=== PATIENT | female | born 1985 | race African-American/Black ===

== ENCOUNTER 2021-10-26 05:33 | Emergency (ER) | payer BC, SELFPAY ==
[2021-10-26] MEDS ORDERED: Lidocaine 1% w/Epinephrine 1:100K 20 ML VIAL ONE (05:57)
== END 2021-10-26 06:39 | disposition home or self-care (01) ==
LOC: CSHERS 05:33
DX: L02.212 Cutaneous abscess of back [any part, except buttock and flank] (principal); E11.9 Type 2 diabetes mellitus without complications; I10 Essential (primary) hypertension; Z79.84 Long term (current) use of oral hypoglycemic drugs; Z79.899 Other long term (current) drug therapy
CPT/HCPCS: 10060

== ENCOUNTER 2022-06-26 17:33 | Emergency (ER) | payer BC ==
[2022-06-26 18:22] LABS: Bilirubin Neg (Negative); Blood, Urine 250 (Negative); Glucose, Urine (Dipstick) 250 mg/dL (Negative); Ketone, Urine 5 mg/dL (Negative); Leukocyte 25 (Negative); Nitrite Negative (Negative); Protein, Urine (Dipstick) 30 mg/dl (Neg-Trace)
[2022-06-26 18:25] LABS: Bacteria/HPF 1+ HPF (None Seen); Mucous/LPF Rare LPF (<2+); RBC/HPF Greater than 50 HPF (0-3); WBC/HPF 0-3 HPF (0-3)
[2022-06-26] MEDS ORDERED: Acetaminophen 500 MG TAB ONE (21:17)
== END 2022-06-26 21:15 | disposition home or self-care (01) ==
LOC: CSHERS 17:33
DX: O20.0 Threatened abortion (principal); Z3A.01 Less than 8 weeks gestation of pregnancy
CPT/HCPCS: 36415; 76856; 81003; 81015; 84702

== ENCOUNTER 2023-08-12 12:18 | Outpatient (CLI) | payer BC, OTHER ==
[2023-08-12 14:22] LABS: #Basophils 0.1 10x3/uL (0.0-0.2); #Eosinphils 0.1 10x3/uL (0.0-0.5); #Monocytes 0.7 10x3/uL (0.0-1.1); #Neutrophils 5.5 10x3/uL (1.5-8.4); %Basophils 0.6 % (0.0-2.0); %Eosinophils 0.8 % (0.0-6.0); %Lymphocytes 23.7 % (18.0-47.0); %Monocytes 8.6 % (0.0-10.0); %Neutrophils 65.9 % (40.0-75.0); Hemoglobin 10.9 g/dL (12.0-15.5); Mean Corpuscular HGB CONC 32.1 g/dL (32.0-36.0); Mean Corpuscular Hemoglobin 29.6 pg (27.0-33.0); Mean Corpuscular Volume 92.4 fl (81.6-98.3); Mean Platelet Volume 9.4 fl (7.4-10.4); Platelet Count 375 10x3/uL (150-450); RBC Distribution Width 13.6 % (11.5-14.5); Red Blood Cell (RBC) Count 3.68 10x6/uL (3.90-5.03); White Blood Cell (WBC) Count 8.3 10x3/uL (3.5-10.5)
[2023-08-12 14:43] LABS: Anion Gap 18 mmol/L (10-20); BUN (Urea Nitrogen) 9 mg/dL (7.0-18.7); Calc. Creatinine Clearance 0 mL/min (70-130); Calcium 10.1 mg/dL (7.8-10.44); Carbon Dioxide 21 mmol/L (22-29); Chloride 102 mmol/L (98-107); Estimated GFR 118; Glucose 60 mg/dL (70-105); Potassium 4.3 mmol/L (3.5-5.1); Sodium 137 mmol/L (136-145)
== END 2023-08-12 12:19 | disposition home or self-care (01) ==
LOC: CSHLAB 12:18
PROVIDERS: ATTEND Specialist
DX: Z01.818 Encounter for other preprocedural examination (principal); C50.011 Malignant neoplasm of nipple and areola, right female breast
CPT/HCPCS: 80048; 85025; 93005; 93010

== ENCOUNTER 2023-08-20 05:51 | Day surgery (SDC) | payer BC, OTHER ==
[2023-08-12 13:23] VITALS: BMI 53.6
[2023-08-20] MEDS ORDERED: Bupivacaine 0.25% HCL 30 ML VIAL ONE (06:22)
[2023-08-20] MEDS ORDERED: EPINEPHrine 1 MG/ML VIAL ONE (06:22)
[2023-08-20] MEDS ORDERED: Ketorolac Tromethamine 30 MG/ML VIAL ONE (06:42)
[2023-08-20] MEDS ORDERED: Acetaminophen 500 MG TAB ONE (06:42)
[2023-08-20] MEDS ORDERED: Ondansetron PF 4 MG/2 ML Vial ONE (07:05)
[2023-08-20] MEDS ORDERED: Dexamethasone 4 mg/ml Vial ONE (07:05)
[2023-08-20] MEDS ORDERED: Lidocaine 1% PF 5 ML VIAL ONE (07:05)
[2023-08-20] MEDS ORDERED: Rocuronium Bromide 10 MG/ML (10ML VIAL) ONE (07:05)
[2023-08-20] MEDS ORDERED: fentaNYL 50 mcg/mL 1 mL Vial ONE (07:05)
[2023-08-20] MEDS ORDERED: PROPOFOL 20 ML ONE (07:05)
[2023-08-20] MEDS ORDERED: CEFAZOLIN 2 GM VIAL ONE (07:15)
[2023-08-20] MEDS ORDERED: Esmolol 100 MG/10 ML VIAL ONE (07:56)
[2023-08-20] MEDS ORDERED: PHENYLEPHRINE-NS 100 MCG/ML 10 ML SYRINGE ONE ×2 (07:56→18:03)
[2023-08-20] MEDS ORDERED: Atropine Sulfate 0.4 mg/1 ml Vial ONE (08:07)
[2023-08-20] MEDS ORDERED: Glycopyrrolate 0.2 MG/ML 5 ML SYRINGE ONE (08:21)
[2023-08-20] MEDS ORDERED: SUGAMMADEX SODIUM 200 MG/2 ML VIAL ONE (08:23)
[2023-08-20] MEDS ORDERED: HYDROcodone/Acetaminophen 5/325 mg Tablet PO SCH (11:30)
[2023-08-20] MEDS ORDERED: Betamet Acet/Betamet Na Ph 30 MG/5 ML VIAL IM SCH (12:00)
[2023-08-20 15:53] VITALS: TEMP 98.2
[2023-08-20 15:57] VITALS: BP 143/73
[2023-08-20] MEDS ORDERED: ePHEDrine Sulfate 50 MG/10 ML VIAL ONE (18:04)
== END 2023-08-20 15:15 | disposition home or self-care (01) ==
LOC: CSHSDC 05:51 → CSHANTE 10:43 → CSHSDC 15:15
PROVIDERS: ATTEND Specialist
PROC: 0HBT0ZZ Excision of Right Breast, Open Approach (ICD-10-PCS; principal; 2023-08-20)
DX: C50.011 Malignant neoplasm of nipple and areola, right female breast (principal); I10 Essential (primary) hypertension; E11.9 Type 2 diabetes mellitus without complications; E66.01 Morbid (severe) obesity due to excess calories; Z68.43 Body mass index [BMI] 50.0-59.9, adult; Z79.82 Long term (current) use of aspirin; Z79.84 Long term (current) use of oral hypoglycemic drugs; Z79.899 Other long term (current) drug therapy; Z87.891 Personal history of nicotine dependence
CPT/HCPCS: 36416; 88307; 88341; 88342; J0171; J0461; J0702; J1100; J1885; J2405; J2704; J3010; S0020

== ENCOUNTER 2023-10-15 16:43 | Day surgery (SDC) | payer BC, OTHER ==
[2023-10-15 17:15] VITALS: BMI 54.0
[2023-10-15] MEDS ORDERED: hydrALAZINE 20 MG/ML VIAL SLOW IVP PRN (17:54)
[2023-10-15 19:08] LABS: #Monocytes 0.4 10x3/uL (0.0-1.1); #Neutrophils 4.1 10x3/uL (1.5-8.4); %Basophils 0.3 % (0.0-2.0); %Eosinophils 0.5 % (0.0-6.0); %Lymphocytes 27.2 % (18.0-47.0); %Monocytes 6.9 % (0.0-10.0); %Neutrophils 64.8 % (40.0-75.0); Hematocrit 33.5 % (34.9-44.5); Hemoglobin 11.3 g/dL (12.0-15.5); Mean Corpuscular HGB CONC 33.7 g/dL (32.0-36.0); Mean Corpuscular Volume 88.9 fl (81.6-98.3); Platelet Count 303 10x3/uL (150-450); RBC Distribution Width 13.8 % (11.5-14.5); Red Blood Cell (RBC) Count 3.77 10x6/uL (3.90-5.03); White Blood Cell (WBC) Count 6.4 10x3/uL (3.5-10.5)
[2023-10-15 19:16] LABS: Creatinine, Urine 181.11 mg/dL (47-110)
[2023-10-15 19:22] LABS: ALT (SGPT) 11 U/L (8-55); AST (SGOT) 15 U/L (5-34); Albumin 3.3 g/dL (3.5-5.0); Alkaline Phosphatase 135 U/L (40-110); Anion Gap 15 mmol/L (10-20); BUN (Urea Nitrogen) 11 mg/dL (7.0-18.7); Bilirubin, Total 0.2 mg/dL (0.2-1.2); Calc. Creatinine Clearance 223 mL/min (70-130); Calcium 10.5 mg/dL (7.8-10.44); Carbon Dioxide 20 mmol/L (22-29); Chloride 103 mmol/L (98-107); Estimated GFR 113; Globulin 3.7 g/dL (2.4-3.5); Glucose 147 mg/dL (70-105); Potassium 4.1 mmol/L (3.5-5.1); Sodium 134 mmol/L (136-145)
== END 2023-10-15 19:44 | disposition home or self-care (01) ==
LOC: CSHLD/OP 16:43
PROVIDERS: ATTEND Family Medicine
DX: O10.913 Unspecified pre-existing hypertension complicating pregnancy, third trimester (principal); O09.523 Supervision of elderly multigravida, third trimester; O24.313 Unspecified pre-existing diabetes mellitus in pregnancy, third trimester; O99.213 Obesity complicating pregnancy, third trimester; O99.891 Other specified diseases and conditions complicating pregnancy; O99.013 Anemia complicating pregnancy, third trimester; Z86.000 Personal history of in-situ neoplasm of breast; Z98.890 Other specified postprocedural states; Z79.82 Long term (current) use of aspirin; Z79.4 Long term (current) use of insulin; Z79.899 Other long term (current) drug therapy; Z79.84 Long term (current) use of oral hypoglycemic drugs; Z3A.35 35 weeks gestation of pregnancy
CPT/HCPCS: 36415; 76819; 80053; 82570; 82728; 84156; 85025; 99284

== ENCOUNTER 2023-10-20 05:00 | Inpatient (IN) | payer BC, OTHER ==
[2023-10-20] MEDS ORDERED: ePHEDrine Sulfate 50 MG/10 ML VIAL ONE (08:00)
[2023-10-20 20:46] VITALS: BMI 54.0
[2023-10-20] MEDS ORDERED: Misoprostol 200 MCG TAB PR PRN (22:07)
[2023-10-20] MEDS ORDERED: Carboprost 250 MCG/ML AMP IM PRN (22:07)
[2023-10-20] MEDS ORDERED: Ondansetron PF 4 MG/2 ML Vial IVP PRN (22:07)
[2023-10-20] MEDS ORDERED: hydrALAZINE 20 MG/ML VIAL SLOW IVP PRN (22:07)
[2023-10-20] MEDS ORDERED: Diphenoxylate HCl/Atropine Tablet PO PRN (22:07)
[2023-10-20] MEDS ORDERED: Tranexamic Acid 1,000 MG/10 ML VIAL IVP PRN (22:07)
[2023-10-20] MEDS ORDERED: Promethazine HCl 25 MG/ML VIAL IM PRN (22:07)
[2023-10-20] MEDS ORDERED: Lidocaine 1% (PF) 30 ML VIAL SC PRN (22:07)
[2023-10-20] MEDS ORDERED: Acetaminophen 500 MG TAB PO PRN (22:07)
[2023-10-20] MEDS ORDERED: Docusate 100 MG CAP PO PRN (22:07)
[2023-10-20] MEDS ORDERED: Oxytocin 30 units/NS 500 ML 500 ML IV SCH ×2 (22:15)
[2023-10-20] MEDS ORDERED: HumaLOG 300 UNITS/3 ML VIAL SC PRN ×2 (22:24)
[2023-10-20] MEDS ORDERED: Dextrose 5% in Water 1,000 ML IV PRN (22:24)
[2023-10-20] MEDS ORDERED: Glucagon 1 MG/ML KIT IM PRN (22:24)
[2023-10-20] MEDS ORDERED: Dextrose 50% Abboject 50 ML SYRINGE SLOW IVP PRN (22:24)
[2023-10-20] MEDS ORDERED: HumaLOG 300 UNITS/3 ML VIAL SC SCH ×2 (22:30→23:09)
[2023-10-20 22:38] LABS: Hematocrit 32.4 % (34.9-44.5); Hemoglobin 10.7 g/dL (12.0-15.5); Mean Corpuscular Hemoglobin 28.8 pg (27.0-33.0); Mean Corpuscular Volume 87.3 fl (81.6-98.3); Mean Platelet Volume 10.2 fl (7.4-10.4); Platelet Count 324 10x3/uL (150-450); RBC Distribution Width 14.1 % (11.5-14.5); Red Blood Cell (RBC) Count 3.71 10x6/uL (3.90-5.03); White Blood Cell (WBC) Count 7.2 10x3/uL (3.5-10.5)
[2023-10-20 23:02] LABS: ALT (SGPT) 14 U/L (8-55); AST (SGOT) 41 U/L (5-34); Albumin 3.3 g/dL (3.5-5.0); Alkaline Phosphatase 129 U/L (40-110); Anion Gap 17 mmol/L (10-20); BUN (Urea Nitrogen) 11 mg/dL (7.0-18.7); Bilirubin, Total 0.2 mg/dL (0.2-1.2); Calc. Creatinine Clearance 211 mL/min (70-130); Calcium 10.2 mg/dL (7.8-10.44); Carbon Dioxide 16 mmol/L (22-29); Chloride 104 mmol/L (98-107); Estimated GFR 106; Globulin 4.3 g/dL (2.4-3.5); Glucose 227 mg/dL (70-105); HBSAg Index 0.19 S/CO (0-0.99); Hep B Surf Ag - L&D Non-Reactive S/CO (NonReactive); Potassium 4.9 mmol/L (3.5-5.1); Protein, Total 7.6 g/dL (6.0-8.3); Sodium 132 mmol/L (136-145); Syphilis Antibody Nonreactive (Nonreactive); Syphilis Antibody Index 0.03 S/CO (<1.00 Non-Reactive)
[2023-10-20] MEDS: Misoprostol 100 MCG TAB VAG SCH (23:35)
[2023-10-21 00:07] LABS: Creatinine, Urine 146.74 mg/dL (47-110)
[2023-10-21] MEDS: Misoprostol 100 MCG TAB VAG SCH ×2 (03:15→09:34)
[2023-10-21 04:22] LABS: Anion Gap 14 mmol/L (10-20); BUN (Urea Nitrogen) 9 mg/dL (7.0-18.7); Calc. Creatinine Clearance 244 mL/min (70-130); Calcium 9.5 mg/dL (7.8-10.44); Carbon Dioxide 18 mmol/L (22-29); Chloride 107 mmol/L (98-107); Estimated GFR 116; Glucose 94 mg/dL (70-105); Potassium 3.8 mmol/L (3.5-5.1); Sodium 135 mmol/L (136-145)
[2023-10-21] MEDS: NIFEdipine XL 30 MG ER.TAB PO SCH (07:52)
[2023-10-21] MEDS: metFORMIN 500 MG TAB PO SCH (07:56)
[2023-10-21] MEDS ORDERED: Magnesium Sulfate 20 gm/500 ml 20 GM/500 ML BAG ONE (08:04)
[2023-10-21] MEDS ORDERED: Magnesium Sulfate 6 GM in Sodium Chloride 0.9% 250 ML 250 ML IVPB SCH (08:15)
[2023-10-21] MEDS ORDERED: Magnesium 2 GM/50 ML(in water) 2 GM in Premix 1 BAG IVPB SCH (08:15)
[2023-10-21] MEDS ORDERED: hydrALAZINE 20 MG/ML VIAL SLOW IVP PRN ×2 (08:45)
[2023-10-21] MEDS ORDERED: Lorazepam 2 MG/ML VIAL SLOW IVP PRN (08:45)
[2023-10-21] MEDS ORDERED: Labetalol HCl 100 MG/20 ML VIAL SLOW IVP PRN ×2 (08:45)
[2023-10-21] MEDS ORDERED: Calcium Gluc 4.6 MEQ/10 ML (100 MG/ML) SLOW IVP PRN (08:45)
[2023-10-21] MEDS ORDERED: Lantus 1000 UNITS/10 ML VIAL SC SCH ×2 (09:00)
[2023-10-21 09:59] LABS: #Monocytes 0.6 10x3/uL (0.0-1.1); #Neutrophils 4.1 10x3/uL (1.5-8.4); %Basophils 0.3 % (0.0-2.0); %Eosinophils 0.3 % (0.0-6.0); %Lymphocytes 22.2 % (18.0-47.0); %Monocytes 9.5 % (0.0-10.0); %Neutrophils 67.5 % (40.0-75.0); Hematocrit 34.9 % (34.9-44.5); Hemoglobin 11.4 g/dL (12.0-15.5); Mean Corpuscular HGB CONC 32.7 g/dL (32.0-36.0); Mean Corpuscular Hemoglobin 29.9 pg (27.0-33.0); Mean Corpuscular Volume 91.6 fl (81.6-98.3); Mean Platelet Volume 9.7 fl (7.4-10.4); Platelet Count 314 10x3/uL (150-450); RBC Distribution Width 13.9 % (11.5-14.5); Red Blood Cell (RBC) Count 3.81 10x6/uL (3.90-5.03); White Blood Cell (WBC) Count 6.1 10x3/uL (3.5-10.5)
[2023-10-21 10:17] LABS: ALT (SGPT) 10 U/L (8-55); AST (SGOT) 15 U/L (5-34); Albumin 3.3 g/dL (3.5-5.0); Alkaline Phosphatase 147 U/L (40-110); Anion Gap 14 mmol/L (10-20); BUN (Urea Nitrogen) 8 mg/dL (7.0-18.7); Bilirubin, Total 0.3 mg/dL (0.2-1.2); Calc. Creatinine Clearance 248 mL/min (70-130); Calcium 9.5 mg/dL (7.8-10.44); Carbon Dioxide 20 mmol/L (22-29); Chloride 104 mmol/L (98-107); Estimated GFR 116; Globulin 3.7 g/dL (2.4-3.5); Glucose 82 mg/dL (70-105); Potassium 3.7 mmol/L (3.5-5.1); Sodium 134 mmol/L (136-145)
[2023-10-21] MEDS ORDERED: Insulin Regular 300 UNITS/3 ML VIAL SC PRN (11:35)
[2023-10-21] MEDS ORDERED: Morphine 4 MG/ML VIAL SLOW IVP SCH (12:00)
[2023-10-21] MEDS ORDERED: fentaNYL/Ropivacaine Epidural 100 ML ONE (12:49)
[2023-10-21] MEDS ORDERED: Ondansetron PF 4 MG/2 ML Vial IVP PRN (13:55)
[2023-10-21] MEDS ORDERED: Lactated Ringer's 500 ML IV PRN (13:55)
[2023-10-21] MEDS ORDERED: Moisturizing Cream (Eucerin) 113 GM JAR TOP PRN (13:55)
[2023-10-21] MEDS ORDERED: Naloxone HCl 0.4 mg/ml Vial IVP PRN ×2 (13:55)
[2023-10-21] MEDS ORDERED: Promethazine HCl 25 MG/ML VIAL IM PRN (13:55)
[2023-10-21] MEDS ORDERED: diphenhydrAMINE 50 MG/ML VIAL IVP PRN (13:55)
[2023-10-21] MEDS ORDERED: Communication Order-Pharmacy FS SCH (14:00)
[2023-10-21] MEDS ORDERED: fentaNYL 2 mcg/Ropivacaine 0.2% Epidural 100 ML CADD EPIDURAL SCH (14:00)
[2023-10-21] MEDS: ePHEDrine Sulfate 50 MG/10 ML VIAL SLOW IVP PRN ×2 (14:00→16:21)
[2023-10-21 14:38] LABS: Creatinine, Urine 72.39 mg/dL (47-110)
[2023-10-21] MEDS: Lactated Ringer's 1,000 ML IV SCH ×2 (14:57→18:42)
[2023-10-21] MEDS: Magnesium Sulfate 20 gm/500 ml 20 GM/500 ML BAG IVPB SCH (16:22)
[2023-10-21] MEDS ORDERED: Lactated Ringer's 500 ML IV SCH (18:15)
[2023-10-21 19:14] LABS: Anion Gap 16 mmol/L (10-20); BUN (Urea Nitrogen) 9 mg/dL (7.0-18.7); Calc. Creatinine Clearance 233 mL/min (70-130); Carbon Dioxide 18 mmol/L (22-29); Chloride 103 mmol/L (98-107); Estimated GFR 115; Glucose 90 mg/dL (70-105); Magnesium 4.5 mg/dL (1.6-2.6); Potassium 4.3 mmol/L (3.5-5.1); Sodium 133 mmol/L (136-145)
[2023-10-22] MEDS: Acetaminophen 325 MG TAB PO PRN (03:45)
[2023-10-22] MEDS: Magnesium Sulfate 20 gm/500 ml 20 GM/500 ML BAG IVPB SCH (04:00)
[2023-10-22] MEDS ORDERED: Pantoprazole 40 MG VIAL IVP SCH (06:00)
[2023-10-22] MEDS ORDERED: Ondansetron ODT 4 MG TAB PO PRN (07:32)
[2023-10-22] MEDS: NIFEdipine XL 30 MG ER.TAB PO SCH (08:47)
[2023-10-22] MEDS: metFORMIN 500 MG TAB PO SCH ×2 (08:47→20:38)
[2023-10-22] MEDS ORDERED: HumaLOG 300 UNITS/3 ML VIAL SC PRN ×2 (09:34)
[2023-10-22] MEDS ORDERED: Azithromycin 500 MG VIAL ONE (10:33)
[2023-10-22] MEDS ORDERED: CEFAZOLIN 2 GM VIAL ONE (10:33)
[2023-10-22] MEDS ORDERED: fentaNYL 50 mcg/mL 1 mL Vial ONE ×2 (10:42)
[2023-10-22] MEDS ORDERED: Oxytocin 10 UNITS/ML VIAL ONE (10:43)
[2023-10-22] MEDS ORDERED: Misoprostol 200 MCG TAB ONE (10:47)
[2023-10-22] MEDS ORDERED: Carboprost 250 MCG/ML AMP ONE (10:53)
[2023-10-22] MEDS ORDERED: Moisturizing Cream (Eucerin) 113 GM JAR TOP PRN (10:59)
[2023-10-22] MEDS ORDERED: Promethazine HCl 25 MG/ML VIAL IM PRN (10:59)
[2023-10-22] MEDS ORDERED: Naloxone HCl 0.4 mg/ml Vial IVP PRN ×2 (10:59)
[2023-10-22] MEDS ORDERED: Promethazine HCl 25 MG SUPP PR PRN (10:59)
[2023-10-22] MEDS ORDERED: Ondansetron PF 4 MG/2 ML Vial IVP PRN ×3 (10:59→11:33)
[2023-10-22] MEDS ORDERED: diphenhydrAMINE 50 MG/ML VIAL IVP PRN (10:59)
[2023-10-22] MEDS ORDERED: Meperidine HCl/PF 25 MG (1 mL) VIAL SLOW IVP PRN (10:59)
[2023-10-22] MEDS ORDERED: fentaNYL 50 mcg/mL 1 mL Vial SLOW IVP PRN (10:59)
[2023-10-22] MEDS ORDERED: Naloxone HCl 0.4 mg/ml Vial IV PRN (10:59)
[2023-10-22] MEDS ORDERED: Communication Order-Pharmacy FS SCH (11:00)
[2023-10-22] MEDS ORDERED: Ketorolac Tromethamine 30 MG (1 mL) VIAL IVP SCH (11:00)
[2023-10-22 11:01] LABS: Analyzer IN Cardio CS NICU; RapidComm Collect By OR NURSE; pH (Cord, venous) 7.276 (7.250-7.350)
[2023-10-22] MEDS ORDERED: Morphine PF 10 MG/10 ML VIAL ONE (11:06)
[2023-10-22] MEDS ORDERED: Midazolam HCl 2 mg/2 ml Vial ONE (11:13)
[2023-10-22] MEDS ORDERED: Promethazine HCl 25 MG/ML VIAL ONE (11:18)
[2023-10-22] MEDS ORDERED: Acetaminophen 325 MG TAB PO PRN (11:33)
[2023-10-22] MEDS ORDERED: Boostrix 0.5 ML (Tdap) VIAL (>/=7 yrs of age) IM ONE (11:33)
[2023-10-22] MEDS ORDERED: hydrALAZINE 20 MG/ML VIAL SLOW IVP PRN (11:33)
[2023-10-22] MEDS ORDERED: Lanolin Ointment 7 GM TUBE TOP PRN (11:33)
[2023-10-22] MEDS ORDERED: Simethicone Chewable 80 MG TAB PO PRN (11:33)
[2023-10-22] MEDS: Misoprostol 100 MCG TAB VAG SCH ×2 (15:32→15:33)
[2023-10-22] MEDS: Ferrous Sulfate 325 MG TAB PO SCH (15:33)
[2023-10-22] MEDS: Prenatal Vitamin 1 TAB PO SCH ×2 (15:33→15:34)
[2023-10-22] MEDS: Lactated Ringer's 1,000 ML IV SCH ×2 (15:48→15:57)
[2023-10-22] MEDS: Ketorolac Tromethamine 30 MG (1 mL) VIAL IVP PRN (17:47)
[2023-10-22] MEDS: Docusate 100 MG CAP PO SCH (20:38)
[2023-10-23 05:44] LABS: Hemoglobin 9.3 g/dL (12.0-15.5); Mean Corpuscular HGB CONC 33.2 g/dL (32.0-36.0); Mean Corpuscular Hemoglobin 29.9 pg (27.0-33.0); Mean Platelet Volume 9.8 fl (7.4-10.4); Platelet Count 267 10x3/uL (150-450); RBC Distribution Width 14.2 % (11.5-14.5); Red Blood Cell (RBC) Count 3.11 10x6/uL (3.90-5.03); White Blood Cell (WBC) Count 7.8 10x3/uL (3.5-10.5)
[2023-10-23] MEDS: Ketorolac Tromethamine 30 MG (1 mL) VIAL IVP PRN (08:42)
[2023-10-23] MEDS ORDERED: Enoxaparin 40 MG (0.4 mL) SYRINGE SC SCH (09:00)
[2023-10-23] MEDS: metFORMIN 500 MG TAB PO SCH ×3 (10:43→21:16)
[2023-10-23] MEDS: Enoxaparin 40 MG (0.4 mL) SYRINGE SC SCH ×2 (10:43→21:16)
[2023-10-23] MEDS: Docusate 100 MG CAP PO SCH ×2 (10:43→21:16)
[2023-10-23] MEDS: NIFEdipine XL 30 MG ER.TAB PO SCH (10:43)
[2023-10-23] MEDS: Ferrous Sulfate 325 MG TAB PO SCH (13:44)
[2023-10-23] MEDS: Prenatal Vitamin 1 TAB PO SCH (13:44)
[2023-10-23] MEDS: Acetaminophen 325 MG TAB PO PRN (14:13)
[2023-10-23] MEDS: HYDROcodone/Acetaminophen 5/325 mg Tablet PO PRN ×2 (14:23→19:50)
[2023-10-23] MEDS: Lactated Ringer's 1,000 ML IV SCH ×5 (14:57→17:04)
[2023-10-23] MEDS: Misoprostol 100 MCG TAB VAG SCH ×3 (14:57→15:27)
[2023-10-23] MEDS: Ibuprofen 800 MG TAB PO SCH (16:39)
[2023-10-24] MEDS: Ibuprofen 800 MG TAB PO SCH ×2 (01:15→07:46)
[2023-10-24] MEDS: HYDROcodone/Acetaminophen 5/325 mg Tablet PO PRN (05:32)
[2023-10-24] MEDS ORDERED: Oxytocin 30 units/NS 500 ML 500 ML IV SCH ×2 (06:15)
[2023-10-24] MEDS: metFORMIN 500 MG TAB PO SCH (07:45)
[2023-10-24] MEDS: NIFEdipine XL 30 MG ER.TAB PO SCH (07:45)
[2023-10-24] MEDS: Enoxaparin 40 MG (0.4 mL) SYRINGE SC SCH (07:46)
[2023-10-24] MEDS: Docusate 100 MG CAP PO SCH (07:46)
[2023-10-24 08:14] VITALS: BP 133/71; TEMP 97.7
[2023-10-24] MEDS ORDERED: Lantus 1000 UNITS/10 ML VIAL SC SCH (09:00)
== END 2023-10-24 10:30 | disposition home or self-care (01) | DRG 786 ==
LOC: CSHLD 20:25 → CSHPP 10-23 11:51
PROVIDERS: ADMIT Obstetrics & Gynecology; ATTEND Obstetrics & Gynecology
PROC: 10D00Z1 Extraction of Products of Conception, Low, Open Approach (ICD-10-PCS; principal; 2023-10-22)
PROC: 3E0P7VZ Introduction of Hormone into Female Reproductive, Via Natural or Artificial Opening (ICD-10-PCS; 2023-10-22)
PROC: 10H07YZ Insertion of Other Device into Products of Conception, Via Natural or Artificial Opening (ICD-10-PCS; 2023-10-22)
PROC: 4A133R1 Monitoring of Arterial Saturation, Peripheral, Percutaneous Approach (ICD-10-PCS; 2023-10-22)
PROC: 3E033XZ Introduction of Vasopressor into Peripheral Vein, Percutaneous Approach (ICD-10-PCS; 2023-10-22)
DX: O99.892 Other specified diseases and conditions complicating childbirth (principal); O24.12 Pre-existing type 2 diabetes mellitus, in childbirth; O76 Abnormality in fetal heart rate and rhythm complicating labor and delivery; O11.4 Pre-existing hypertension with pre-eclampsia, complicating childbirth; O99.214 Obesity complicating childbirth; O99.02 Anemia complicating childbirth; E66.01 Morbid (severe) obesity due to excess calories; D50.9 Iron deficiency anemia, unspecified; E11.65 Type 2 diabetes mellitus with hyperglycemia; D05.10 Intraductal carcinoma in situ of unspecified breast; Z3A.36 36 weeks gestation of pregnancy; Z37.0 Single live birth
CPT/HCPCS: 36415; 36416; 51702; 80048; 80053; 82010; 82570; 82805; 83735; 84156; 85025; 85027; 86780; 86850; 86900; 86901; 87340; C9113; J0360; J1200; J1650; J1815; J1885; J2250; J2270; J2274; J2405; J2550; J2590; J3010; J3475; J3490; J7120